=== PATIENT | female | born 1990 | race African-American/Black ===

== ENCOUNTER 2019-08-08 09:06 | Emergency (ER) | payer MEDICAID, OTHER ==
[~2019-08-08] VITALS: Ht 172.7 cm; Wt 101.0 kg
[2019-08-08] MEDS ORDERED: DEXAMETHASONE 4MG/ML 1ML VIAL IM ONE (10:00)
[2019-08-08 11:49] VITALS: BP 135/85
== END 2019-08-08 11:52 | disposition home or self-care (01) ==
LOC: ER 09:06
DX: T45.0X5A Adverse effect of antiallergic and antiemetic drugs, initial encounter (principal); L50.0 Allergic urticaria; Z88.5 Allergy status to narcotic agent; Y92.89 Other specified places as the place of occurrence of the external cause
CPT/HCPCS: 81025; 96372; 99283; J1100